=== PATIENT | male | born 1930 | race Caucasian/White ===

== ENCOUNTER → 2016-07-26 | Outpatient (CLI) | payer MEDICARE ==
[~2016-07-26] MED LIST: ACTOS PO; AMARYL PO; ASPIRIN81 M2 PO; ASPIRINEC PO; BENAZEPRIL HCL5 M1 PO; CENTRUM SILVER PO; COUMADIN4 MG PO; FLOMAX0.4 M1 PO; LOTREL 5/20 MG1 CAP PO; LOVENOX80 MG/0.8 INJ; MULTI-VIT/MIN P1 TAB PO; TIMOPTIC2.5 ML OP; ULTRAM PO; ZOCOR PO
--- NOTE | ~2016-07-26 | MR113 ---
[facility] A Service of [facility] RADIOLOGY TEXT RESULTS PATIENT: CRUZITO MELO LOCATION: [facility] : 29 UNIT #: [id number] AGE: [address]: UMAIR PEDRAZA MD SEX: M ORDER DR: [id number] [address] [address] [id number] MR#: [id number] Acc #: [id number] NAME: CRUZITO MELO : 1930 SEX: M STUDY DATE/TIME: 07/26/2016 11:50 UNIT: [facility] ROOM: STUDY DESCRIPTION: MR Lumbar Wo Contrast Attending Physician: Ermelinda Pedraza M.D. Referring Physician: Ermelinda Pedraza M.D. Ordering Physician: Ermelinda Pedraza M.D. Primary Care Physician: Ermelinda Pedraza M.D. MRI CENTER REPORT This report is preliminary unless electronic signature is present. EXAM MRI of the lumbar spine without contrast dated 07/26/2016 COMPARISON None. HISTORY Increasing low back pain, left hip pain that projects into the left lower extremity for 1 month. FINDINGS Multisequence, multiplanar imaging of the lumbar spine was obtained without contrast. Superior endplate compression deformity is seen at T12. There is mild retrolisthesis of L5 with respect to L4. Edematous and endplate changes are noted at L4-5. Conus terminates at L1. Signal of conus and cauda equina are within normal limits. Pre- and paravertebral soft tissues do not demonstrate any significant abnormality. T12-L1: Disc osteophyte complex with moderate bilateral facet hypertrophic changes. Borderline-sized canal. No significant neural foraminal narrowing. L1-2: Disc osteophyte complex which is asymmetrically prominent in bilateral qalfmaghq-tz-zeqvmbpvgasjlf regions. Mild bilateral facet changes and moderate bilateral ligamentum flavum thickening with ejlc-ty-onqconez canal stenosis and mild inferior bilateral neural foraminal narrowing. L3-4: Moderate disc bulge with ckim-ne-tjwplbsp bilateral facet changes and severe bilateral ligamentum flavum thickening with severe canal stenosis. Mild bilateral neural foraminal narrowing is seen. [facility] A Service of [facility] RADIOLOGY TEXT RESULTS PATIENT: CRUZITO MELO LOCATION: [facility] : 29 UNIT #: [id number] AGE: [address]: UMAIR PEDRAZA MD SEX: M ORDER DR: L4-5: Disc osteophyte complex which is asymmetrically prominent in the cvmrv-et-obuq subarticular region. It has superior and inferior migration with a height of 1.0 cm. There is bilateral facet hypertrophic changes and severe bilateral spurs/soft tissue thickening in the anteromedial aspect of bilateral facet joints are noted causing severe bilateral lateral recess stenosis, severe canal stenosis, and nwtxgihr-yh-qormsd bilateral neural foraminal narrowing. Relatively worse level. In the anterosuperior aspect of the left facet joint, there is a 0.9 cm increased T2 signal lesion which could represent a synovial cyst or inflammatory tissue. It impinges on the left L4 number to the left lateral recess. Bilateral L4 nerve roots are impinged in the L5 lateral recess due to disc disease and facet hypertrophic changes. Severe right and jvbeqasd-qw-eiqzbq left neural foraminal narrowing are noted. Worse level. L5-S1: Disc osteophyte complex with jfctwxpe-ib-qzmutg bilateral facet hypertrophic changes. In the medial aspect of the right facet joint, there is a lesion which has increased T2 and decreased T2 signal along with a peripheral rind of decreased T2 signal. Totally the lesion measures about 1.3 x 1.1 cm and it causes severe mass effect on the adjacent fecal sac. Also seen are increased T2 signal lesions posterior to the right facet joint with the largest axial component measuring 1.1 cm. Disc osteophyte complex with mrvw-xm-mzbgdiir bilateral neural foraminal narrowing are seen. IMPRESSION 1. Degenerative changes are noted at multiple levels, worse at L4-5 as described above with very severe canal stenosis, bilateral lateral recess stenosis, and neural foraminal narrowing are seen. 2. In the medial aspect of the hypertrophied right facet joint, there is a 1.3 x 1.1 cm mass with differential T2 signal. It is probably a synovial cyst with some calcifications or hemorrhage. Associated synovial inflammatory tissue can also be part of it. This causes severe mass effect on the L5-S1 thecal sac and some right lateral recess stenosis. Bilateral neural foraminal narrowing are also seen. 3. Refer above. Significant findings are also seen at L3-4. Dictated by... Deb Dillon M.D. THIS IS AN ELECTRONICALLY VERIFIED REPORT Deb Dillon M.D. at 07/27/2016 4:32 PM CPR/aa TD: 07/27/2016 15:28 [facility] A Service of [facility] RADIOLOGY TEXT RESULTS PATIENT: CRUZITO MELO LOCATION: [facility] #: [id number] : 29 UNIT #: [id number] AGE: [address]: UMAIR PEDRAZA MD SEX: M ORDER DR: JENNIFER #: [id number] MRI CENTER REPORT Page 1 of 1
== END | disposition home or self-care (01) ==
LOC: SMRI 11:16
DX: M53.3 Sacrococcygeal disorders, not elsewhere classified (principal); M47.812 Spondylosis without myelopathy or radiculopathy, cervical region; M48.06 Spinal stenosis, lumbar region; M51.36 Other intervertebral disc degeneration, lumbar region
CPT/HCPCS: 72148

== ENCOUNTER 2016-08-06 16:57 | Inpatient (IN) | payer MEDICARE, BC ==
--- NOTE | ~2016-08-06 | HP ---
Unit #: [id number] #: [id number] Patient: CRUZITO MELO [id number] [address] [place], [place] [address] [id number] I MR#: [id number] NAME: CRUZITO MELO. ROOM: [facility] Age: 86 Sex: M Admission Date: 08/06/2016 : 1930 Attending Physician: Buck Nayak M.D. Primary Care Physician: Ermelinda Trejo M.D. HISTORY AND PHYSICAL CHIEF COMPLAINT Abnormal labs. HISTORY OF PRESENT ILLNESS The patient is an 86-year-old male with a history of spinal stenosis diagnosed on July 26 who presented to the emergency room with abnormal (1) of the right lower extremity. The patient had swelling of the right foot. The patient was seen by the primary care physician and had workup with a uric acid, and it was initially thought that patient had gout. The patient continued to have the pain. The patient was referred to the orthopedic foot doctor, Dr. Mccarthy. The patient was seen at the foot doctor's office today and had an ultrasound of the leg that showed positive for recent popliteal, femoral, and posterior tibial vein thrombosis. The patient was referred to the hospital for anticoagulation. PAST MEDICAL HISTORY 1. Spinal stenosis. 2. Hypertension. 3. Chronic kidney disease. PAST SURGICAL HISTORY Glaucoma surgery. ALLERGIES None. HOME MEDICATIONS Unavailable. FAMILY HISTORY Reviewed and none. No history of clots. REVIEW OF SYSTEMS A 14-point review of systems was performed and only pertinent positive findings are described above. The remaining systems are negative. PHYSICAL EXAMINATION GENERAL: Patient is lying in bed not in acute distress. VITAL SIGNS: Temperature afebrile, blood pressure 104/58, heart rate 76, and respiratory rate 20. HEENT: Head normocephalic, atraumatic. Pupils equal, round, and reacting to light and accommodation. Moist mucous membranes. NECK: Supple. LUNGS: Decreased air entry at the bases. Unit #: [id number] #: [id number] Patient: CRUZITO MELO HEART: Regular rate and rhythm. ABDOMEN: Soft. Positive bowel sounds. EXTREMITIES: Right lower extremity minimal swelling. No redness or tenderness. NEUROLOGIC: Alert, awake, and oriented. No gross focal motor deficit. DIAGNOSTIC STUDIES LABORATORY: CBC, BMP, and INR are pending. IMAGING: Doppler shows the recent acute venous thrombosis in the popliteal, femoral, and posterior tibial. MRI of the spine on July 26 that showed degenerative changes noted at multiple levels, worse at L4-5 as described above, with very severe canal stenosis, bilateral lateral recess stenosis, and neural foraminal narrowing seen. ASSESSMENT 1. Right-sided deep venous thrombosis. 2. History of spinal stenosis. 3. Hypertension. PLAN Admit the patient to inpatient with telemetry. Patient will receive CBC, BMP, and INR today, and will start on Lovenox 1 mg/kg subcutaneous daily. Will check the echo. Patient will be transitioned to oral anticoagulation at the time of discharge. Further recommendations will follow. Dictated by Hetal Voss TD: 08/06/2016 20:06 JOB #: [id number] HISTORY AND PHYSICAL Page 1 of 1 X X HISTORY AND PHYSICAL
--- NOTE | ~2016-08-06 | DS ---
Unit #: [id number] #: [id number] Patient: CRUZITO MELO [id number] [address] [place], [place] [address] [id number] I MR#: [id number] NAME: CRUZITO MELO. ROOM: [facility] Age: 86 Sex: M Admission Date: 08/06/2016 : 1930 Discharge Date: 08/08/2016 Attending Physician: Jeanette Claudio M.D. Primary Care Physician: Ermelinda Trejo M.D. DISCHARGE SUMMARY PRINCIPAL DIAGNOSES 1. Acute extensive right lower extremity DVT of the femoral, popliteal and posterior tibial veins. 2. Chronic kidney disease stage 3 with baseline creatinine of 1.5. 3. Lumbar spinal stenosis with associated sciatica. 4. Diabetes mellitus type 2, noninsulin requiring, controlled. 5. Hypertension. 6. Benign prostatic hypertrophy. 7. Physical deconditioning. 8. Mildly hard of hearing. 9. Osteoarthritis. CONSULTANTS None. PROCEDURES PERFORMED Two-dimensional echocardiogram on 08/07/2016 with ejection fraction of 55%. Mild concentric left ventricular hypertrophy noted. Grade 1 diastolic dysfunction noted. No evidence of ventricular mass or thrombus. No evidence of right ventricular strain. DIAGNOSTIC DATA IMAGING: Right lower extremity venous Doppler on 08/06/2016 with recent rhombus of the right femoral, popliteal and posterior tibial vein. Left lower extremity is normal. CLINICAL HISTORY/HOSPITAL COURSE Mr. Melo is an exceptionally nice 86-year-old male who admitted to the hospital after findings of DVT on a Doppler done as an outpatient. Please refer to history and physical for further details. The patient was started on therapeutic Lovenox. Two-dimensional echocardiogram was done, but did not reveal any findings consistent with PE. The patient did not have any chest pain, nor did he have any hypoxic during hospitalization. I suspect his DVT is secondary to some significant decreased mobility, given he as significant spinal stenosis. He states all of his cancer screening is up to date. I do not believe there is any underlying malignancy as a source of his clot. I attempted to mancuso check Eliquis and Xarelto, but unfortunately these were too expensive and, thus, we are going to continue the patient on bridging Lovenox with the initiation of Coumadin for approximately three to six months. This has all been discussed with the patient and his , who expressed understanding. I will arrange for home health to see the patient to monitor INRs at home at least in the short term. Unit #: [id number] #: [id number] Patient: CRUZITO MELO DISCHARGE CONDITION Stable. DISPOSITION Discharge home with home health. DISCHARGE MEDICATIONS 1. Coumadin 4 mg p.o. daily. 2. Lovenox 80 mg subcutaneous q.12 h., to stop when INR is greater than or equal to 2.0. 3. Flomax 0.4 mg b.i.d. 4. Benazepril 5 mg daily. 5. Daily multivitamin. 6. Aspirin 81 mg daily. 7. Tramadol 50 mg p.o. q.12 h. p.r.n. pain. 8. Amaryl 4 mg daily. DIET The patient is instructed to follow a heart healthy, constant carb diet. He did receive education regarding foods that affect Coumadin prior to discharge. ACTIVITY Increase as tolerated under the care of physical therapy as an outpatient. FOLLOWUP 1. The patient needs follow-up INR done on 08/11/2016, with results called to me on that day and subsequently to Dr. Trejo. Again, discontinuation of Lovenox when INR is greater than or equal to 2.0. 2. The patient will follow up with Dr. Trejo in approximately two weeks. Time spent on discharge was 44 minutes. Dictated by... Jeanette Claudio M.D. SAUD/saud TD: 08/08/2016 09:03 JOB #: [id number] DISCHARGE SUMMARY Page 1 of 1 X Jeanette Claudio MD X DISCHARGE SUMMARY
[~2016-08-06 16:57] MED LIST changes: -AMARYL PO; -ASPIRIN81 M2 PO; -BENAZEPRIL HCL5 M1 PO; -CENTRUM SILVER PO; -COUMADIN4 MG PO; -FLOMAX0.4 M1 PO; -LOVENOX80 MG/0.8 INJ; -ULTRAM PO
[2016-08-06 19:17] LABS: BASOPHIL# 0.1 X10e3 (0-0.3); BASOPHIL% 0.5 % (0-2.5); EOSINOPHIL# 0.1 X10e3 (0-0.7); EOSINOPHIL% 1.1 % (0.0-7.0); HEMATOCRIT 38.1 % (38.0-50.0); HEMOGLOBIN 12.6 gm/dL (13.0-16.0); LYMPHOCYTE# 1.4 X10e3 (1.0-3.5); LYMPHOCYTE% 11.5 % (17.0-45.0); MEAN CELL VOLUME 90.1 FL (83-96); MEAN CORPUSCULAR HEMOGLOBIN 29.8 PG (28-34); MEAN CORPUSCULAR HGB CONC 33.1 g/dL (30-36); MEAN PLATELET VOLUME 7.2 FL (6.5-11.5); MONOCYTE# 1.1 X10e3 (0-1.0); MONOCYTE% 8.9 % (3.0-12.0); NEUTROPHIL# 9.7 X10e3 (1.5-7.1); PLATELET COUNT 260 X10e3 (140-420); RED BLOOD COUNT 4.23 X10e (3.90-5.60); RED CELL DISTRIBUTION WIDTH 13.9 % (11.0-15.5); WHITE BLOOD COUNT 12.5 X10e3 (4.0-10.5)
[2016-08-06 19:18] LABS: DIFF IND NO
[2016-08-06 19:31] LABS: PROTHROMBIN TIME (PATIENT) 10.7 SECONDS (9.6-11.5)
[2016-08-06 19:40] LABS: BUN/CREATININE RATIO 21.76; CREATININE SERUM 1.7 mg/dL (0.6-1.4); GLOM FILT RATE Estimated 35.5 mL/min (>60); POTASSIUM 4.9 mmol/L (3.5-5.1)
[2016-08-06] MEDS ORDERED: CENTRUM SILVER PO (20:02)
[2016-08-06] MEDS ORDERED: ASPIRIN81 M2 PO (20:02)
[2016-08-06] MEDS ORDERED: AMARYL PO (20:03)
[2016-08-06] MEDS ORDERED: FLOMAX0.4 M1 PO (20:04)
[2016-08-06] MEDS ORDERED: BENAZEPRIL HCL5 M1 PO (20:05)
[2016-08-06] MEDS ORDERED: ULTRAM PO (20:08)
[2016-08-07 03:33] LABS: BASOPHIL# 0.1 X10e3 (0-0.3); BASOPHIL% 0.9 % (0-2.5); EOSINOPHIL# 0.1 X10e3 (0-0.7); EOSINOPHIL% 1.2 % (0.0-7.0); HEMATOCRIT 35.4 % (38.0-50.0); HEMOGLOBIN 11.7 gm/dL (13.0-16.0); LYMPHOCYTE# 2.1 X10e3 (1.0-3.5); MEAN CELL VOLUME 90.7 FL (83-96); MEAN CORPUSCULAR HEMOGLOBIN 29.9 PG (28-34); MEAN PLATELET VOLUME 7.7 FL (6.5-11.5); MONOCYTE% 9.1 % (3.0-12.0); NEUTROPHIL# 7.8 X10e3 (1.5-7.1); NEUTROPHIL% 69.8 % (40-75); PLATELET COUNT 248 X10e3 (140-420); WHITE BLOOD COUNT 11.1 X10e3 (4.0-10.5)
[2016-08-07 03:35] LABS: DIFF IND NO
[2016-08-07 03:49] LABS: INR 1.1; PROTHROMBIN TIME (PATIENT) 11.4 SECONDS (9.6-11.5)
[2016-08-07 03:57] LABS: BUN/CREATININE RATIO 25.33; CALCIUM SERUM 8.7 mg/dL (8.4-10.2); CREATININE SERUM 1.5 mg/dL (0.6-1.4); GLOM FILT RATE Estimated 41.3 mL/min (>60); POTASSIUM 4.5 mmol/L (3.5-5.1)
[2016-08-08 04:10] LABS: BASOPHIL# 0.1 X10e3 (0-0.3); BASOPHIL% 1.1 % (0-2.5); EOSINOPHIL# 0.6 X10e3 (0-0.7); EOSINOPHIL% 6.8 % (0.0-7.0); HEMATOCRIT 37.7 % (38.0-50.0); HEMOGLOBIN 12.6 gm/dL (13.0-16.0); LYMPHOCYTE# 2.2 X10e3 (1.0-3.5); LYMPHOCYTE% 25.4 % (17.0-45.0); MEAN CELL VOLUME 90.6 FL (83-96); MEAN CORPUSCULAR HEMOGLOBIN 30.2 PG (28-34); MEAN CORPUSCULAR HGB CONC 33.3 g/dL (30-36); MEAN PLATELET VOLUME 7.2 FL (6.5-11.5); MONOCYTE# 0.9 X10e3 (0-1.0); MONOCYTE% 10.4 % (3.0-12.0); NEUTROPHIL% 56.3 % (40-75); PLATELET COUNT 256 X10e3 (140-420); RED BLOOD COUNT 4.16 X10e (3.90-5.60); RED CELL DISTRIBUTION WIDTH 14.1 % (11.0-15.5); WHITE BLOOD COUNT 8.8 X10e3 (4.0-10.5)
[2016-08-08 04:11] LABS: DIFF IND NO
[2016-08-08 04:38] LABS: BUN/CREATININE RATIO 23.33; CALCIUM SERUM 8.8 mg/dL (8.4-10.2); CREATININE SERUM 1.5 mg/dL (0.6-1.4); GLOM FILT RATE Estimated 41.3 mL/min (>60); POTASSIUM 4.6 mmol/L (3.5-5.1)
[2016-08-08] MEDS ORDERED: COUMADIN4 MG PO (10:50)
[2016-08-08] MEDS ORDERED: LOVENOX80 MG/0.8 INJ (10:51)
== END 2016-08-08 12:50 | disposition home health service (06) | DRG 301 ==
LOC: C4C 16:57
PROVIDERS: Internal Medicine
PROC: B24BYZZ Ultrasonography of Heart with Aorta using Other Contrast (ICD-10-PCS; principal; 2016-08-07)
DX: I82.411 Acute embolism and thrombosis of right femoral vein (principal); I82.431 Acute embolism and thrombosis of right popliteal vein; N18.3 Chronic kidney disease, stage 3 (moderate); I82.441 Acute embolism and thrombosis of right tibial vein; I12.9 Hypertensive chronic kidney disease with stage 1 through stage 4 chronic kidney disease, or unspecified chronic kidney disease; M48.06 Spinal stenosis, lumbar region; M62.3 Immobility syndrome (paraplegic); M54.30 Sciatica, unspecified side; E11.9 Type 2 diabetes mellitus without complications; N40.0 Benign prostatic hyperplasia without lower urinary tract symptoms; M19.90 Unspecified osteoarthritis, unspecified site; Z79.84 Long term (current) use of oral hypoglycemic drugs
CPT/HCPCS: 80048; 85025; 85610; 93306; 93971; 94760; 97116; 97162; G8978-GP; G8979-GP; G8980-GP; J1650